=== PATIENT | female | born 1985 | race Two or more races ===

== ENCOUNTER 2017-04-14 08:04 | Emergency (ER) | payer OTHER ==
[~2017-04-14] VITALS: Ht 152.4 cm; Wt 87.1 kg
[~2017-04-14 08:04] MED LIST: ANTOXYBENA RIGHTEAR; Amoxicillin500 MG PO; Augmentin 875-1 EACH PO; Bactrim Ds Tab1 EACH PO; CEFD300 PO; CEPH500 PO; Cephalexin500 MG PO; Cleocin HCl300 MG PO; FLUT.05NI; Flonase 0.05% N16 GM; MULVITMINE PO; Norco 5-325 Ta1 EACH PO; Omeprazole20 M1 PO; PANT20 PO; PRENATAL FORMU1 EAC1 PO; PSEU120ER PO; Protonix40 MG PO; Pseudoephedrine30 MG PO; RXANTBENOT RIGHTEAR; Robaxin500 MG PO; STOMACH ULCER MED; SULTRIDS PO; Verotin-Gr Cap1 EACH PO; Zofran Odt4 MG SL; [UNRECOGNIZED DRUG - OTHER]; [UNRECOGNIZED DRUG - REMARK]
[2017-04-14] MEDS ORDERED: CLARITIN10 MG PO (08:41)
[2017-04-14] MEDS ORDERED: Flonase 0.05% N16 GM (08:41)
[2017-04-14] MEDS ORDERED: Augmentin 875-1 EACH PO (08:43)
== END 2017-04-14 08:54 | disposition home or self-care (01) ==
LOC: ER 08:04
DX: O99.513 Diseases of the respiratory system complicating pregnancy, third trimester (principal); J32.9 Chronic sinusitis, unspecified; O99.89 Other specified diseases and conditions complicating pregnancy, childbirth and the puerperium; H65.01 Acute serous otitis media, right ear; Z79.899 Other long term (current) drug therapy; Z3A.32 32 weeks gestation of pregnancy
CPT/HCPCS: 99283

== ENCOUNTER 2017-04-16 18:36 | Emergency (ER) | payer OTHER ==
[~2017-04-16] VITALS: Ht 152.4 cm; Wt 87.1 kg
[~2017-04-16 18:36] MED LIST changes: +CLARITIN10 MG PO
[2017-04-16] MEDS ORDERED: CEFD300 PO (19:04)
== END 2017-04-16 19:11 | disposition home or self-care (01) ==
LOC: ER 18:36
DX: O99.89 Other specified diseases and conditions complicating pregnancy, childbirth and the puerperium (principal); H66.91 Otitis media, unspecified, right ear; Z79.899 Other long term (current) drug therapy; Z79.2 Long term (current) use of antibiotics; Z3A.32 32 weeks gestation of pregnancy
CPT/HCPCS: 99282

== ENCOUNTER 2017-04-21 18:16 | Emergency (ER) | payer OTHER ==
[~2017-04-21] VITALS: Ht 152.4 cm; Wt 87.1 kg
== END 2017-04-21 19:02 | disposition home or self-care (01) ==
LOC: ER 18:16
DX: O99.89 Other specified diseases and conditions complicating pregnancy, childbirth and the puerperium (principal); R07.81 Pleurodynia; R05 Cough; Z79.899 Other long term (current) drug therapy; Z3A.33 33 weeks gestation of pregnancy
CPT/HCPCS: 99283

== ENCOUNTER → 2017-07-31 | Outpatient (CLI) | payer OTHER | END | disposition home or self-care (01) | LOC: LAB EV 14:15 | DX: K21.9 Gastro-esophageal reflux disease without esophagitis (principal) | CPT/HCPCS: 87338 ==

== ENCOUNTER → 2017-10-13 | Outpatient (CLI) | payer OTHER | END | disposition home or self-care (01) | LOC: LAB SHORT 14:38 → LAB EV 14:38 | DX: R30.0 Dysuria (principal) | CPT/HCPCS: 87086 ==

== ENCOUNTER → 2019-06-10 | Outpatient (CLI) | payer OTHER | END | disposition home or self-care (01) | LOC: LAB SHORT 07:40 → LAB EV 07:40 | DX: R30.9 Painful micturition, unspecified (principal) | CPT/HCPCS: 87077; 87086; 87186 ==

== ENCOUNTER → 2019-06-11 | Outpatient (CLI) | payer OTHER | END | disposition home or self-care (01) | LOC: LAB EV 19:06 → LAB SHORT 19:06 | DX: N39.0 Urinary tract infection, site not specified (principal) | CPT/HCPCS: 87077; 87086; 87186 ==

== ENCOUNTER → 2021-04-11 | Outpatient (CLI) | payer OTHER | END | disposition home or self-care (01) | LOC: LAB SHORT 16:23 → LAB 16:23 | DX: N39.0 Urinary tract infection, site not specified (principal) | CPT/HCPCS: 87077; 87086; 87186 ==

== ENCOUNTER → 2021-06-22 | Outpatient (CLI) | payer OTHER | END | disposition home or self-care (01) | LOC: LAB 11:53 → LAB SHORT 11:53 | DX: B34.9 Viral infection, unspecified (principal) | CPT/HCPCS: 87081 ==

== ENCOUNTER → 2021-12-22 | Outpatient (CLI) | payer OTHER | END | disposition home or self-care (01) | LOC: LAB SHORT 09:22 | DX: N39.0 Urinary tract infection, site not specified (principal) | CPT/HCPCS: 87077; 87086; 87186 ==

== ENCOUNTER 2022-10-26 10:16 | Emergency (ER) | payer OTHER ==
[~2022-10-26] VITALS: Ht 152.4 cm; Wt 80.7 kg
[2022-10-26 10:18] VITALS: BP 142/87
[2022-10-26] MEDS ORDERED: IBUP800 PO (12:22)
[2022-10-26] MEDS ORDERED: Robaxin750 MG PO (12:22)
== END 2022-10-26 12:19 | disposition home or self-care (01) ==
LOC: ER 10:16
DX: M54.2 Cervicalgia (principal); R51.9 Headache, unspecified; M54.6 Pain in thoracic spine; M25.512 Pain in left shoulder; Z88.0 Allergy status to penicillin; V89.2XXA Person injured in unspecified motor-vehicle accident, traffic, initial encounter; Y92.410 Unspecified street and highway as the place of occurrence of the external cause
CPT/HCPCS: 70450; 71046; 99284-25

== ENCOUNTER 2023-11-30 11:37 | Emergency (ER) | payer OTHER ==
[~2023-11-30] VITALS: Ht 152.4 cm; Wt 86.6 kg
[~2023-11-30 11:37] MED LIST changes: +IBUP800 PO; +Robaxin750 MG PO
[2023-11-30 12:13] LABS: BASOPHILS ABSOLUTE AUTO 0.03 K/mm3 (0.00-0.23); BASOPHILS PERCENT AUTO 1 % (0-2); EOSINOPHILS ABSOLUTE AUTO 0.08 K/mm3 (0.00-0.68); EOSINOPHILS PERCENT AUTO 2 % (0-6); Hematocrit 41.4 % (33.0-51.0); Hemoglobin 13.7 g/dL (11.5-16.0); IMMATURE GRAN ABSOLUTE AUTO 0.01 K/mm3 (0.00-0.10); IMMATURE GRAN PERCENT AUTO 0 % (0-1); LYMPHOCYTES ABSOLUTE AUTO 1.55 K/mm3 (0.84-5.20); LYMPHOCYTES PERCENT AUTO 32 % (21-46); MONOCYTES ABSOLUTE AUTO 0.27 K/mm3 (0.16-1.47); MONOCYTES PERCENT AUTO 6 % (4-13); Mean Corpuscular HGB 28.7 pg (26.0-34.0); Mean Corpuscular HGB Conc 33.1 g/dL (31.5-36.5); Mean Corpuscular Volume 87 fL (80-100); Mean Platelet Volume 12.4 fL (9.1-12.4); NEUTROPHILS ABSOLUTE AUTO 2.94 K/mm3 (1.96-9.15); NEUTROPHILS PERCENT AUTO 60 % (41-73); Platelet Count 200 K/mm3 (150-400); RDW Coefficient Variation 12.8 % (11.7-14.2); RDW Standard Deviation 40.5 fL (35.1-46.3); Red Blood Cell Count 4.78 M/mm3 (3.80-5.20); White Blood Cell Count 4.88 K/mm3 (4.00-11.30)
[2023-11-30 12:40] LABS: Albumin, Blood 4.1 g/dL (3.4-5.0); Albumin/Globulin Ratio 1.1 (0.8-1.8); Bilirubin, Total 0.4 mg/dL (0.1-1.0); Bun/Creatinine Ratio 16.7 (12.0-20.0); Calcium, Blood 8.8 mg/dL (8.5-10.1); Creatinine, Blood 0.66 mg/dL (0.40-1.00); Globulin, Blood 3.9 g/dL (2.2-4.0); Potassium, Blood 3.9 mmol/L (3.5-5.5)
[2023-11-30] MEDS ORDERED: DIPH50 PO (15:35)
[2023-11-30] MEDS ORDERED: FLONASE ALLERG9.9 ML (15:35)
[2023-11-30] MEDS ORDERED: ALLERGY NASAL17 ML (16:24)
[2023-11-30 17:01] VITALS: BP 147/88
== END 2023-11-30 17:02 | disposition home or self-care (01) ==
LOC: ER 11:37
PROVIDERS: Emergency Medicine
DX: J32.9 Chronic sinusitis, unspecified (principal); K21.9 Gastro-esophageal reflux disease without esophagitis; Z79.51 Long term (current) use of inhaled steroids; Z79.899 Other long term (current) drug therapy; Z88.0 Allergy status to penicillin
CPT/HCPCS: 80053; 85025; 99283

== ENCOUNTER 2024-04-15 15:49 | Emergency (ER) | payer OTHER ==
[~2024-04-15] VITALS: Ht 152.4 cm; Wt 83.9 kg
[~2024-04-15 15:49] MED LIST changes: +ALLERGY NASAL17 ML; +DIPH50 PO; +FLONASE ALLERG9.9 ML
[2024-04-15 16:25] VITALS: BP 161/101
[2024-04-15] MEDS ORDERED: Zithromax250 MG PO (16:28)
== END 2024-04-15 16:28 | disposition home or self-care (01) ==
LOC: ER 15:49
DX: J02.0 Streptococcal pharyngitis (principal); K21.9 Gastro-esophageal reflux disease without esophagitis; Z79.899 Other long term (current) drug therapy; Z79.51 Long term (current) use of inhaled steroids; Z88.0 Allergy status to penicillin; Z88.5 Allergy status to narcotic agent
CPT/HCPCS: 99282

== ENCOUNTER → 2024-10-23 | Outpatient (CLI) | payer OTHER ==
[~2024-10-23] MED LIST changes: +Zithromax250 MG PO
== END | disposition home or self-care (01) ==
LOC: LAB 15:30 → LAB SHORT 15:30
DX: N39.0 Urinary tract infection, site not specified (principal); R31.9 Hematuria, unspecified
CPT/HCPCS: 87086